=== PATIENT | male | born 1965 | race African-American/Black ===

== ENCOUNTER 2017-05-02 07:20 | Observation (INO) ==
--- NOTE | 2017-04-29 10:49 | EKG Report ---
Test Performed on : 04/29/2017 10:01:12 AM Test Reason : pat Blood Pressure : / mmHG Vent. Rate : 068 BPM Atrial Rate : 068 BPM P-R Int : 150 ms QRS Dur : 082 ms QT Int : 408 ms P-R-T Axes : 074 068 068 degrees QTc Int : 433 ms Normal sinus rhythm. Normal ECG No previous ECGs available Confirmed by Brittany MCFADDEN, Amador Gorman ([id number]) on 04/29/2017 5:01:27 PM
[2017-04-29 10:57] LABS: HEMOGLOBIN 14.9 g/dL (14.0-18.0); MCH 29.6 PG (27-31); MCHC 33.1 g/dL (33-37); MCV 89.3 FL (81-99); MPV 10.5 FL (7.4-10.4); RBC 5.04 XMIL (4.7-6.1)
[2017-04-29 11:14] LABS: AGAP 10; BUN 7 mg/dL (8-22); CALCIUM 9.8 mg/dL (8.8-10.2); CHLORIDE 102 mmol/L (98-107); COSMO 275; POTASSIUM 4.2 mmol/L (3.5-5.1); SODIUM 139 mmol/L (136-145); TCO2 27 mmol/L (25-35)
[2017-05-02] MEDS ORDERED: LR 1,000 ML ONE ×2 (07:39→14:04)
[2017-05-02] MEDS ORDERED: REGLAN ONE (07:39)
[2017-05-02] MEDS ORDERED: TRANSDERM-SCOP ONE (07:39)
[2017-05-02] MEDS ORDERED: PEPCID ONE (07:39)
[2017-05-02] MEDS ORDERED: CLINDAMYCIN 900 MG/NS 900 MG/50 ML IVPB IV ONE (08:00)
[2017-05-02] MEDS ORDERED: XYLOCAINE-MPF 1%/EPI 1:200,000 ONE (09:18)
[2017-05-02] MEDS ORDERED: BACTROBAN OINTMENT ONE (09:18)
[2017-05-02] MEDS ORDERED: CLINDAMYCIN ONE (09:18)
[2017-05-02] MEDS ORDERED: QUELICIN (DOSE) ONE (09:22)
[2017-05-02] MEDS ORDERED: XYLOCAINE-MPF 2% ONE (09:22)
[2017-05-02] MEDS ORDERED: DIPRIVAN 1% ONE (09:22)
[2017-05-02] MEDS ORDERED: LUBRIFRESH PM OPH OINTMENT ONE (09:54)
[2017-05-02] MEDS ORDERED: FENTANYL ONE ×2 (09:55→10:53)
[2017-05-02] MEDS ORDERED: ZOFRAN ONE (10:08)
[2017-05-02] MEDS ORDERED: DECADRON ONE (10:08)
[2017-05-02] MEDS ORDERED: LABETALOL IV SCH (13:20)
[2017-05-02] MEDS ORDERED: PRINIVIL PO ONE (13:45)
[2017-05-02] MEDS: DILAUDID IV PRN (15:51)
[2017-05-02] MEDS: PERCOCET-5 PO SCH ×3 (15:56→22:37)
[2017-05-02] MEDS ORDERED: SODIUM CHLORIDE 0.9% INJ PRN (16:07)
[2017-05-02] MEDS ORDERED: PHENERGAN IV PRN (16:08)
[2017-05-02 16:39] LABS: HEMATOCRIT 42.4 % (42.0-52.0); MPV 10.4 FL (7.4-10.4); RBC 4.66 XMIL (4.7-6.1)
[2017-05-02 16:59] LABS: AGAP 12; ALBUMIN 4.5 g/dL (3.5-5.0); ALKALINE PHOSPHATASE 76 U/L (32-122); BUN 17 mg/dL (8-22); CALCIUM 9.3 mg/dL (8.8-10.2); CHLORIDE 101 mmol/L (98-107); COSMO 278; GOT 23 U/L (10-34); GPT 20 U/L (10-44); POTASSIUM 4.5 mmol/L (3.5-5.1); SODIUM 138 mmol/L (136-145); TCO2 25 mmol/L (25-35); TOTAL BILIRUBIN 0.34 mg/dL (0.20-1.00); TOTAL PROTEIN 6.9 g/dL (6.3-8.3)
[2017-05-02] MEDS ORDERED: SYMBICORT 80/4.5 MICROGM INHALER INH SCH (17:00)
[2017-05-02] MEDS ORDERED: LR 1,000 ML IV SCH (17:00)
--- NOTE | 2017-05-02 18:38 | OPERATIVE NOTE ---
PROCEDURE DATE: 05/02/2017 PREOPERATIVE DIAGNOSIS: Left parotid mass 4 cm. PROCEDURE: Left parotid mass 4 cm. PROCEDURE: 1. Left superficial parotidectomy with facial nerve dissection. 2. Permacol implant. 3. Complex wound closure of the ear 13 cm. ANESTHESIA: General with endotracheal intubation. DRAINS: One drain was placed. DETAILS OF OPERATION: Patient was identified, consented, brought to the operating room, placed in supine position where general anesthesia was induced with endotracheal intubation. 1% lidocaine 1:200,000 epinephrine was injected into the subcutaneous region around the ear in a pretragal incision and the ear lobe and neck. The patient has prepped and draped in usual sterile fashion. Curvilinear standard parotid incision was performed. Subcutaneous dissection was performed anteriorly and this mass was incised. The pretragal area, dissection was carried down anterior to the sternocleidomastoid, down to the facial nerve which was identified with the nerve stimulator and global stimulation. The inferior branch of the facial nerve was followed and multiple small branches were dissected free of the tumor, which laid down at the inferior aspect of the parotid. At 1 point the tumor capsule was inadvertently nicked and probably 15 mL of mucoid material dripped out and was suctioned out of the middle of what seemed to be a decompressing cyst. The wound was irrigated with clindamycin and saline solution and the inferior half of the superficial parotid lobe was delivered off of the facial nerve with meticulous attention paid to preservation of the inferior branch. The marginal mandibular branch was in multiple small wispy branches that were tightly adherent to the capsule of this tumor. These were meticulously dissected off and all of them seemed to be grossly intact at the end of the case. This mass was pulled backwards where it could be and then a Permacol implant bridged the gap inferiorly where the transected portion of the saliva gland was exposed. This was the tacked in place with 4-0 Vicryl circumferential stitches. The drain was placed and brought out through another separate stab incision. The wound was closed in layers with 4-0 Vicryl deep and intermediate subcutaneous simple interrupted stitches along this mass and skin, superficial clips along the neck incision and then 5-0 Prolene. Closed superficial interrupted along the ear. Pressure dressing was applied. He was allowed to recover from anesthesia. A drain was attached to bulb suction. She was extubated and transferred to the recovery room in stable condition. Total length of the complex wound closure was 13 cm. cc: Job Kilpatrick MD
[2017-05-02] MEDS: DECADRON IV SCH (18:45)
[2017-05-02] MEDS: CLINDAMYCIN 600 MG/NS 600 MG/50 ML IVPB IV SCH (18:45)
--- NOTE | 2017-05-02 23:29 | CONSULTATION ---
DATE OF CONSULTATION: 05/02/2017 CONSULTING PHYSICIAN: Dr. Job Kilpatrick. CONSULTING REASON: Medical management. HISTORY OF PRESENT ILLNESS: Mr. Pérez is a 51-year-old male who is status post left parotidectomy by Dr. Kilpatrick earlier today. We have been asked to follow along for medical management. At this time the patient is complaining of incisional pain and asking for his inhalers because he has a bit of a cough. Otherwise, he has no complaints. Prior to surgery, he denied any chest pain, shortness of breath, lower extremity edema or orthopnea. At this time, patient has no other complaints. We have been asked to follow along for medical management. PAST MEDICAL HISTORY: 1. COPD. 2. Hypertension. 3. Arthritis. 4. Asthma. SURGICAL HISTORY: He has had tonsillectomy and adenoidectomy. He has had a pilonidal cyst removed from the back of his knee. He has had eyelid surgery and now parotid removal on the left. Biopsy is pending. SOCIAL HISTORY: Patient smokes daily cigars. He drinks on the weekends, perhaps 4 beers on a Saturday. Denies drug use. He is self-employed. FAMILY HISTORY: Noncontributory. REVIEW OF SYSTEMS: Fourteen-point review of systems obtained and found to be negative with the exception of the HPI. ALLERGIES: Fish and vitamin D. CURRENT INHOSPITAL MEDICATIONS: Lipitor 40 mg daily. Symbicort 80/4.5 inhaler 3 times a day. Clindamycin 900 mg intraoperatively. Dilaudid 1 mg every 4 hours as needed for pain. Lisinopril 20 mg daily. Oxycodone 5, 1-2 every 4 hours as needed for pain. Zoloft 100 mg daily. PHYSICAL EXAMINATION: Vital Signs: Blood pressure is 145/96, heart rate 75, respiratory rate 18, O2 saturation 96% on room air. Temperature is 98.1 degrees. General: Well developed, well nourished, male, lying in hospital bed. No acute distress. Neurologic: He is awake, alert, oriented. Follows commands without focal deficits. HEENT: Head is atraumatic, normocephalic. He does have a bandage under his chin and around the top of his head. It is clean, dry and intact. Oropharynx is clear and moist. Trachea is midline. Chest: Clear to auscultation bilaterally. CARDIOVASCULAR: Regular rate and rhythm. S1-S2 is noted. There is no JVD. No lower extremity edema. GI: Soft, nondistended, nontender. Bowel sounds positive. Extremities: No edema, clubbing or cyanosis. Pulses palpable bilaterally. DIAGNOSTIC DATA: He had a CBC and BMP done on the 29 of April which was unremarkable. ASSESSMENT/PLAN: 1. Status post left parotid gland excision: Per Dr. Kilpatrick, continue early ambulation, DVT prophylaxis, incentive spirometry. The patient is scheduled for discharge tomorrow. 2. Hypertension: Chronic and stable, continue home medications. 3. Chronic obstructive pulmonary disease: Chronic and stable, continue his Symbicort. 4. Nicotine dependence: Patient has been advised to quit smoking. We will continue daily cessation education. 5. Deep vein thrombosis prophylaxis provided with ambulation. We like to thank you for this consultation. We will continue to follow along with you. Dictated by JUDY Coker for Todd Joy MD cc: JUDY Coker MD I have seen and examined patient and provided face to face evaluation to patient. Mr Pérez is immediate post left parotidectomy. He is doing fine. We are consulted for medical management of his comorbidities including HTN and COPD. I have reviewed his lab work and imagine studies and I agree with the plan outlined above. VI FOSS
[2017-05-03] MEDS: DECADRON IV SCH ×2 (00:41→05:08)
[2017-05-03] MEDS: DILAUDID IV PRN ×2 (00:48→05:14)
[2017-05-03] MEDS: CLINDAMYCIN 600 MG/NS 600 MG/50 ML IVPB IV SCH (02:59)
[2017-05-03] MEDS: PERCOCET-5 PO SCH ×2 (05:08→07:04)
[2017-05-03 08:36] VITALS: BP 120/65
[2017-05-03] MEDS ORDERED: PERIDEX MT SCH (09:00)
[2017-05-03] MEDS ORDERED: LIPITOR PO SCH (09:00)
[2017-05-03] MEDS ORDERED: ZOLOFT PO SCH (09:00)
[2017-05-03] MEDS ORDERED: PRINIVIL PO SCH (09:00)
== END 2017-05-03 08:40 | disposition home or self-care (01) ==
LOC: OR 07:20 → 4N 07:20
PROVIDERS: ADMIT Internal Medicine; ATTEND Otolaryngology Otolaryngology/Facial Plastic Surgery